=== PATIENT | female | born 1985 | race Caucasian/White ===

== ENCOUNTER → 2023-09-15 09:22 | Outpatient (REF) | payer OTHER, SELFPAY | LOC: RAD 09:22 | PROVIDERS: ATTENDING PHYSICIAN Obstetrics & Gynecology; FAMILY PHYSICIAN Nurse Practitioner Family | DX: N81.6 Rectocele (principal); R10.2 Pelvic and perineal pain; N93.9 Abnormal uterine and vaginal bleeding, unspecified | CPT/HCPCS: 76830; 76856 ==

== ENCOUNTER 2023-10-07 06:24 | Day surgery (SDC) | payer OTHER, SELFPAY ==
[2023-10-02 07:36] VITALS: BMI 37.4
[2023-10-02 08:52] LABS: Hematocrit 38.4 % (37.0-47.0); Hemoglobin 12.2 g/dL (12.0-16.0); Mean Corp Hgb Conc. 31.8 g/dL (33.0-37.0); Mean Corpuscular Hgb 29.5 pg (27.0-31.0); Mean Platelet Volume 10.2 fL (7.4-10.4); Platelet Count 281 10^3/uL (130-400); Red Blood Cell Count 4.13 10^6/uL (4.20-5.40); Red Cell Dist. Width 12.8 % (11.5-14.5); White Blood Cell Count 8.1 10^3/uL (4.8-10.8)
[2023-10-02 09:40] LABS: Blood Urea Nitrogen 15 mg/dl (7-17); Calcium 9.2 mg/dl (8.4-10.2); Carbon Dioxide 27 mmol/L (22-30); Chloride 104 mmol/L (98-107); Estimated Creatinine Clearance 122 ml/min; Glucose 86 mg/dl (70-99); Potassium 4.1 mmol/L (3.5-5.1); Sodium 137 mmol/L (135-145); eGFR > 60.00
[2023-10-07] VITALS (15 sets, daily range): BP systolic 96–118; BP diastolic 50–76; BMI 37.4
[2023-10-07] MEDS: Pyridium 200 MG PO (08:39)
[2023-10-07] MEDS: HEPARIN 5000 UNITS SC (08:50)
[2023-10-07] MEDS: NORMOSOL-R 1000 IV (09:03)
--- NOTE | 2023-10-07 12:37 | OR.RPT ---
Operative Report
Operative Report
PREOPERATIVE DIAGNOSIS:
1.���� Chronic pelvic pain
2.���� Rectocele
3.���� Stress urinary incontinence
POSTOPERATIVE DIAGNOSIS:
1.���� 1. Chronic pelvic pain
2.���� Rectocele
3.���� Stress urinary incontinence
PROCEDURE:
1. Robotic assisted total laparoscopic hysterectomy
2. Retropubic midurethral sling
3. Posterior colporrhaphy
4. Cystoscopy
ASSISTANTS: LUNA Diaz
EBL: 200cc
COMPLICATIONS: None
SPECIMENS: Uterus and cervix
INDICATIONS: Patient worsening painful menses and bothersome pelvic organ prolapse and urinary incontinence.� Preoperative urodynamics revealed stress urinary incontinence with urethral hypermobility.� The risks of surgery were reviewed, including
the risk of bleeding, infection, damage to surrounding organs including bowel, bladder, ureter, urethra, nerves, blood vessels, mesh complications, post-operative urinary retention and urinary incontinence. The risk of anesthesia was also reviewed.�
The patient expressed understanding and informed consent was obtained.
FINDINGS: Laparoscopic findings include ovaries were within normal limits bilaterally and patient had a prior bilateral salpingectomy. Cystoscopic findings include normal bladder mucosa, no cystotomy, suture, lacerations or lesions.� Normal efflux
of urine from bilateral ureteral openings. Normal urethra.
DESCRIPTION OF PROCEDURE:
On day of surgery, patient properly identified in preoperative waiting area and informed consent of planned procedure again reviewed.� She was then taken to the operating room.� Sequential compression devices were placed on bilateral lower
extremities and 5,000 units of subcutaneous heparin were given for DVT prophylaxis.� General anesthesia was induced without difficulty.�� Ancef 2 gram and Flagyl 500 mg was given for antibiotic prophylaxis.� The patient was placed in dorsal
lithotomy position with Darryl stirrups and prepped and draped in the usual sterile fashion.� Surgical time-out was performed to review patient and procedure.
Attention was turned to the patient�s vagina.� Melchor catheter was placed to gravity. The uterine manipulator was placed.� The anterior lip of the cervix was grasped with a tenaculum, placed on gentle traction, and uterus sounded.�� The Radio Reporter
uterine manipulator was adjusted to the measurement taken by the sound and placed through the internal cervical os into the uterus.� The balloon was filled with 4 cc of air.�
Attention turned to the patient�s abdomen.� The patient was confirmed to have an OG tube in place on suction for gastric decompression.� A midline 8 mm transverse midline supraumbilical incision was made with the scalpel approximately 20 cm above
the symphysis.� The Veress needle was passed through this incision while tenting up the abdominal wall.� Intraperitoneal placement was confirmed by opening insufflation pressure of 0 mmHg.� The abdomen was insufflated to a pressure of 12 mmHg with
approximately 3L CO2 gas to obtain adequate pneumoperitoneum.� A 8 mm robotic trocar was advanced through this incision with the 0 degree scope and abdominal entry confirmed under direct visualization.� No injuries noted.� Next, the remaining port
sites were marked, injected superficially with local anesthetic, and skin incised with the scalpel.� These sites included two 8 mm robotic ports on the patient's left and one 8mm robotic and one 8 mm accessory port on the patient's right.� All ports
were placed under direct visualization without difficulty.� The patient was placed in [place] position and abdomen and pelvis inspected and noted to be free of significant adhesive disease.� The robot was docked using the left side-docking
technique.� The robotic arms were attached to the ports and instruments placed without difficulty.�
The robotic assisted laparoscopic total hysterectomy was performed as follows.� Starting at the patient�s left, the round ligament, uteroovarian pedicle, and fallopian tube were cauterized with bipolar cautery, and then transected with monopolar
scissors.� The anterior leaf of the broad ligament was opened, and the dissection was carried inferiorly and anterior around the cervix to create the bladder flap.� This process was repeated on the right in a similar fashion.� The vesico-uterine
peritoneum was further opened and the bladder dissected down off the anterior cervix and vagina with sharp and blunt dissection.� Returning to the left, the posterior leaf of the broad ligament was dissected laterally down the side of the uterus.�
The uterine arteries were skeletonized, cauterized, and transected.� Further sequential bites were taken down the side of the uterus to reach the level of the external cervical os.� This process was repeated on the right.� The bladder was further
dissected anteriorly off the vagina.� The colpotomy was made circumferentially around the ring of the uterine manipulator. The uterus and cervix were removed through the vagina. #2-0 Vicryl was used to closed the vaginal cuff in figure of eight
sutures. Next, running #2-0 V-lock was used as a second layer to close the vagina. Hemostasis was maintained.
The robot was undocked. CO2 was released and ports removed under direct visualization.� Skin was closed with 4-0 Biosyn for the subcuticular layer.� All abdominal incisions were then closed with skin glue.�
The retropubic midurethral sling was performed as follows: Two Allis clamps were placed on the anterior vaginal mucosa at the level of the bladder neck and 1 cm from the urethral meatus. This area was infiltrated with 1% lidocaine with 1:100,000
epinephrine. A midline incision was made between the two Allis clamps using a scalpel. The vaginal mucosa was dissected from the underlying pubocervical fascia using Metzenbaum, out to the level of the inferior pubic rami bilaterally. The retropubic
sling trocars were brought onto the field. The right trocar was placed in the right vaginal dissection below the inferior pubic rami, passed behind and around the pubic symphysis, exiting the anterior abdominal wall 2 cm from the midline. This was
repeated on the left in a similar fashion. Melchor catheter was removed and Cystoscopy was performed. Findings were as above. The cystoscope was removed and Melchor catheter replaced.� The sling was attached to the ends of the trocars and pulled out
through the anterior abdominal wall incisions. The mesh was adjusted to allow a curved Trudy between the urethra and the mesh material. The excess mesh was trimmed at the abdominal skin.� The abdominal incisions were closed with Dermabond. The
vaginal incision was closed with 2-0 Vicryl in a running continuous fashion.
The posterior repair and perineorrhaphy was performed as follows: The posterior vaginal mucosa and perineum skin were infiltrated with 1% lidocaine with 1:100,000 epinephrine. A triangular area of perineum skin was removed using a scalpel.� The
posterior vaginal mucosa was then opened up in the midline, going from the introitus toward the apex using Metzenbaum scissors.� The posterior vaginal mucosa was then dissected off the underlying rectovaginal fascia bilaterally out to the level of
the lateral sulci.� The apical edge of the rectovaginal fascia was identified and used plicate in the midline with interrupted stitches of #2-0 PDS.� Interrupted suture of #2-0 PDS were also used to plicate the transverse peritoneal and
bulbospongiosus muscles in the midline to reconstruct the perineal body.� Excess vaginal mucosa was trimmed.� The vaginal mucosa and perineum skin were reapproximated with 2-0 Vicryl in a running continuous fashion.� Rectal exam revealed no
stitches.� Vaginal packing not was placed.
Anesthesia was reversed without difficulty.� The patient tolerated the procedure well, was awakened and sent to the PACU in stable condition. All counts were correct x 2. I, Dr. June was scrubbed and present throughout the procedure
[2023-10-07] MEDS: DILAUDID 0.25 MG IV (13:15)
[2023-10-07] MEDS: MOTRIN 600 MG PO (14:57)
[2023-10-07] MEDS: ROXICODONE 10 MG PO (15:48)
== END 2023-10-07 16:47 | disposition home or self-care (01) ==
LOC: SDS 06:24
PROVIDERS: ATTENDING PHYSICIAN Obstetrics & Gynecology; FAMILY PHYSICIAN Nurse Practitioner Family
DX: N81.6 Rectocele (principal); N39.3 Stress incontinence (female) (male); R10.2 Pelvic and perineal pain; G89.29 Other chronic pain; N80.03 Adenomyosis of the uterus; N94.6 Dysmenorrhea, unspecified; N36.41 Hypermobility of urethra; N93.9 Abnormal uterine and vaginal bleeding, unspecified
CPT/HCPCS: 58570; 57288; 57250; 88307; 36415; 80048; 85027; 86850; 86900; 86901; 93005; C1771

== ENCOUNTER → 2024-02-03 13:39 | Outpatient (REF) | payer OTHER, SELFPAY | LOC: HWWDC 13:39 | PROVIDERS: ATTENDING PHYSICIAN Nurse Practitioner Family | DX: Z12.31 Encounter for screening mammogram for malignant neoplasm of breast (principal) | CPT/HCPCS: 77063; 77067 ==

== ENCOUNTER → 2025-03-17 18:20 | Outpatient (REF) | payer OTHER, SELFPAY | LOC: WDC 18:20 | PROVIDERS: ATTENDING PHYSICIAN Family Medicine | DX: Z12.31 Encounter for screening mammogram for malignant neoplasm of breast (principal) | CPT/HCPCS: 77063; 77067 ==